=== PATIENT | female | born 1985 ===

== ENCOUNTER 2021-03-27 02:22 | Outpatient (CLI) | payer SELFPAY ==
[2021-03-27 02:49] VITALS: BP 121/77
[2021-03-27] MEDS ORDERED: LACTATED RINGERS 1,000 ML IV ONE (03:21)
--- NOTE | 2021-03-27 07:37 | Ultrasound Report ---
ULTRASOUND BIOPHYSICAL PROFILE INDICATION: BPP. COMPARISON: None available. FINDINGS: breathing movement = 2 Gross body movement = 2 tone = 2 Qualitative amniotic fluid volume = 2 Total biophysical score = 02/26 Amniotic fluid index is 11.9 cm. Presentation is Cephalic. heart rate is 125 beats per minute. IMPRESSION: biophysical profile = 02/26 Signer Name: Carmelo Joy MD Signed: 03/27/2021 7:32 AM Workstation Name: [email or web address]
== END 2021-03-27 08:30 | disposition home or self-care (01) ==
LOC: TRG 02:22 → APU 02:30 → TRG 08:30
PROVIDERS: ATTEND Obstetrics & Gynecology
DX: O62.9 Abnormality of forces of labor, unspecified (principal); O26.893 Other specified pregnancy related conditions, third trimester; R10.9 Unspecified abdominal pain; Z3A.40 40 weeks gestation of pregnancy
CPT/HCPCS: 59025; 76815; 76819; 96360

== ENCOUNTER 2021-03-27 15:54 | Inpatient (IN) | payer OTHER ==
[2021-03-27] MEDS ORDERED: LACTATED RINGERS 1,000 ML ONE (18:34)
[2021-03-27] MEDS ORDERED: ePHEDrine SULFATE 50 MG/1 ML INJ IV PRN ×2 (18:41→18:51)
[2021-03-27] MEDS ORDERED: ONDANSETRON 4 MG/2 ML INJ IV PRN ×2 (18:41→22:09)
[2021-03-27] MEDS ORDERED: NALOXONE 2 MG/2 ML INJ IV PRN (18:41)
[2021-03-27] MEDS ORDERED: diphenhydrAMINE 50 MG/ML VIAL IV PRN (18:41)
[2021-03-27] MEDS ORDERED: LACTATED RINGERS 250 ML IV SOLN IV ONE (18:41)
[2021-03-27] MEDS ORDERED: NalbUPHINE 10 MG/1 ML INJ IV PRN (18:41)
[2021-03-27] MEDS ORDERED: LIDOCAINE (2%) 20 MG/1 ML VIAL 20 ML MDV INFILTRATI ONE ×2 (18:51→21:40)
[2021-03-27] MEDS ORDERED: fentaNYL 100 MCG/2 ML INJ IV PRN (18:51)
[2021-03-27] MEDS ORDERED: ACETAMINOPHEN 325 MG TAB PO PRN ×2 (18:51→22:09)
[2021-03-27] MEDS ORDERED: MINERAL OIL 30 ML ORAL LIQD PO PRN (18:51)
[2021-03-27] MEDS ORDERED: NALOXONE 0.4 MG/1 ML INJ IV PRN (18:51)
[2021-03-27] MEDS ORDERED: miSOPROStol 200 MCG TAB PR PRN (18:51)
[2021-03-27] MEDS ORDERED: TERBUTALINE 1 MG/1 ML INJ SUB-Q PRN (18:51)
[2021-03-27] MEDS ORDERED: CARBOPROST TROMETHAMINE 250 MCG/1 ML INJ IM PRN (18:51)
[2021-03-27] MEDS ORDERED: BUTORPHANOL 2 MG/1 ML INJ IV PRN (18:51)
[2021-03-27] MEDS ORDERED: METHYLERGONOVINE MALEATE 0.2 MG/ML VIAL IM PRN (18:51)
[2021-03-27] MEDS ORDERED: LOPERAMIDE 2 MG CAP PO PRN (18:51)
[2021-03-27] MEDS ORDERED: OXYTOCIN 10 UNIT/1 ML INJ IM PRN (18:51)
[2021-03-27] MEDS ORDERED: OXYTOCIN DRIP 30 UNITS/500 ML BAG IV SCH ×3 (19:00→23:00)
[2021-03-27] MEDS ORDERED: fentaNYL-BUPIV 2 MCG/ML-0.125% 200 MCG/100 ML BAG EPIDURAL SCH (19:00)
[2021-03-27] MEDS ORDERED: LACTATED RINGERS 1,000 ML IV SCH (19:00)
[2021-03-27 19:15] LABS: Hematocrit 37.7 % (30.3-42.9); Hemoglobin 12.7 gm/dl (10.1-14.3); Mean Corpuscular HGB Conc 34 % (30-34); Mean Corpuscular Volume 81 fl (79-97); Platelet Count 182 K/mm3 (140-440); Red Blood Count 4.66 M/mm3 (3.65-5.03); Red Cell Distribution Width 15.9 % (13.2-15.2)
--- NOTE | 2021-03-27 19:42 | History and Physical Report ---
History of Present Illness Date of examination: 03/27/21 Chief complaint: contractions History of present illness: 35 yo A1 at 40w1d ([place] 03/26/21) c/b AMA (cfDNA neg), UTI (E coli s/p tx), el evated 1hr GTT, nl 3hr GTT (PNC at [facility]) presenting with contractions, now 4 cm. +FM. Denies PIH symptoms. PNC reviewed. B+ antibody negative Hemoglobin and hematocrit 12.2 and 36.1 Pap smear negative Rubella immune VDRL nonreactive Urine culture positive for E. coli x 2 Hemoglobin B surface antigen negative HIV negative Gonorrhea chlamydia negative Fragile X, SMA, cyst fibrosis negative CF DNA negative AFP negative 1 hour GTT 161 3-hour GTT 79, 145, 140, 112 Group B strep negative Past History Past Medical History: no pertinent history Past Surgical History: no surgical history Family/Genetic History: none Social history: no significant social history - Obstetrical History Expected Date of Delivery: 03/26/21 Actual Gestation: 40 Week(s) 1 Day(s) : 4 Para: 1 Spontaneous Abortions: 1 Number of Living Children: 2 Medications and Allergies Allergies Allergy/AdvReac Type Severity Reaction Status Date / Time No Known Allergies Allergy Verified 03/27/21 18:31 Home Medications Medication Instructions Recorded Confirmed Last Taken Type One Daily Tablet 1 tab PO DAILY 03/27/21 03/27/21 03/27/21 09:00 History 1 tab Active Meds: Active Medications Acetaminophen (Acetaminophen 325 Mg Tab) 650 mg PO Q4H PRN PRN Reason: Pain, Mild (1-3) Butorphanol Tartrate (Butorphanol 2 Mg/1 Ml Inj) 1 mg IV Q2H PRN PRN Reason: Pain, Moderate(4-6) LABOR PAIN Carboprost Tromethamine (Carboprost Tromethamine 250 Mcg/1 Ml Inj) 250 mcg IM ONCE PRN PRN Reason: Uterine Bleeding Diphenhydramine HCl (Diphenhydramine 50 Mg/Ml Vial) 12.5 mg IV Q2H PRN PRN Reason: Itching Ephedrine Sulfate (Ephedrine Sulfate 50 Mg/1 Ml Inj) 10 mg IV Q2M PRN PRN Reason: Hypotension Fentanyl (Fentanyl 100 Mcg/2 Ml Inj) 100 mcg IV Q2H PRN PRN Reason: Pain,Severe (7-10) LABOR PAIN Last Admin: 03/27/21 19:11 Dose: 100 mcg Documented by: Fentanyl/Bupivacaine/Sodium Chlor (Fentanyl-Bupiv 2 Mcg/Ml-0.125%) 200 mcg in 100 mls @ 12 mls/hr EPIDURAL TITR MYRA; Protocol Oxytocin/Sodium Chloride (Pitocin/Ns 30 Unit/500ml) 30 units in 500 mls @ 2 mls/hr IV TITR MYRA; Protocol Lactated Ringer's (Lactated Ringers) 1,000 mls @ 125 mls/hr IV DIRECT MYRA Last Admin: 03/27/21 19:28 Dose: 125 mls/hr Documented by: Oxytocin/Sodium Chloride (Pitocin/Ns 30 Unit/500ml) 30 units in 500 mls @ 40 mls/hr IV TITR MYRA; Protocol Last Admin: 03/27/21 19:28 Dose: 40 ml/hr, 40 mls/hr Documented by: Loperamide HCl (Loperamide 2 Mg Cap) 2 mg PO ONCE PRN PRN Reason: give with Hemabate Methylergonovine Maleate (Methylergonovine Maleate 0.2 Mg/Ml Vial) 0.2 mg IM ONCE PRN PRN Reason: Uterine Bleeding Mineral Oil (Mineral Oil 30 Ml Oral Liqd) 30 ml PO QHS PRN PRN Reason: Constipation Misoprostol (Misoprostol 200 Mcg Tab) 800 mcg GA ONCE PRN PRN Reason: Uterine Bleeding Nalbuphine HCl (Nalbuphine 10 Mg/1 Ml Inj) 2.5 mg IV Q2H PRN PRN Reason: Itching Naloxone HCl (Naloxone 0.4 Mg/1 Ml Inj) 0.1 mg IV Q2MIN PRN PRN Reason: Res Rate </= 8 or 02 SAT < 92% Ondansetron HCl (Ondansetron 4 Mg/2 Ml Inj) 4 mg IV Q8H PRN PRN Reason: Nausea And Vomiting Oxytocin (Oxytocin 10 Unit/1 Ml Inj) 10 unit IM ONCE PRN PRN Reason: Uterine Bleeding Terbutaline Sulfate (Terbutaline 1 Mg/1 Ml Inj) 0.25 mg SUB-Q ONCE PRN PRN Reason: Hyperstimulation/Hypertonicity Review of Systems All systems: negative (expect HPI) - Vital Signs Vital signs: Vital Signs Pulse Pulse Ox 83 98 03/27/21 16:15 03/27/21 16:15 Temp Pulse Resp BP Pulse Ox 98.3 F 87 18 103/63 97 03/27/21 18:23 03/27/21 19:33 03/27/21 16:19 03/27/21 19:23 03/27/21 19:33 - Physical Exam Abdomen: Positive: normal appearance, soft, normal bowel sounds Genitourinary (Female): Positive: normal external genitalia Uterus: Positive: enlarged Extremities: Positive: normal - Obstetrical FHR: category 1 Uterine Contraction Monitor Mode: External Cervical Dilatation: 8 Uterine Contraction Pattern: Regular Results Result Diagrams: 03/27/21 18:33 Abnormal lab results 03/27/21 Range/Units 18:33 WBC 11.8 H (4.5-11.0) K/mm3 MCH 27 L (28-32) pg RDW 15.9 H (13.2-15.2) % All other labs normal. Assessment and Plan - Patient Problems (1) Active labor at term Current Visit: Yes Status: Acute Plan to address problem: Proceed with expectant management for patient on active labor, Pitocin PRN uterine contractions --Anticipate --Epidural is available GBS negative
[2021-03-27] MEDS ORDERED: diphenhydrAMINE 25 MG CAP PO PRN (22:09)
[2021-03-27] MEDS ORDERED: PROMETHAZINE 25 MG TAB PO PRN (22:09)
[2021-03-27] MEDS ORDERED: PROMETHAZINE 25 MG RECT SUPP PR PRN (22:09)
[2021-03-27] MEDS ORDERED: WITCH HAZEL/ GLYCERIN PAD TP PRN (22:09)
[2021-03-27] MEDS ORDERED: MAGNESIUM HYDROXIDE (MOM) ORAL LIQD UDC PO PRN (22:09)
[2021-03-27] MEDS ORDERED: LANOLIN/ZINC/DIMETHICONE (LANSINOH) 7 GM TP PRN (22:09)
--- NOTE | 2021-03-27 22:14 | Procedure Note ---
OB Delivery Note - Delivery Date of Delivery: 03/27/21 Surgeon: NELL LOPEZ JR Estimated blood loss: 300cc - Vaginal Delivery presentation: vertex Delivery position: OA Intrapartum events: meconium (thick terminal meconium), other(please specify) (body cord x 1) Delivery induction: none Delivery augmentation: rupture of membranes Delivery monitor: external FHT, external uterine Route of delivery: Delivery placenta: spontaneous Delivery cord: other (body cord x 1, loose) Episiotomy: none Delivery laceration: 2nd degree Delivery repair: vicryl Anesthesia: local, intravenous Delivery comments: Status post vaginal delivery of female infant at 2145. Thick meconium noted at time of rupture. Body cord x1 noted at time delivery. Weight 3960 g height 20 inches Apgars 8/9. Second-degree perineal laceration. 2-0 Vicryl. Fundus firm below the umbilicus. Methergine x1 used for uterine atony. EBL 400 cc - A at 1 minute: 8 at 5 minutes: 9 Infant Gender: Female
[2021-03-28] MEDS: IBUPROFEN 600 MG TAB PO SCH ×4 (00:30→17:20)
[2021-03-28] MEDS: oxyCODONE /ACETAMINOPHEN 5-325MG TAB PO PRN (04:55)
--- NOTE | 2021-03-28 10:05 | Progress Note ---
Assessment and Plan A: S/P p: Continue rouitne pp orders Awaiting H&H D/C home tomm if stable Subjective - Subjective Date of service: 03/28/21 Principal diagnosis: s/p Patient reports: appetite normal, voiding normally, pain well controlled, ambulating normally [place]: doing well, bottle feeding Objective - Vital Signs Latest vital signs: Vital Signs Temp Pulse Resp BP BP Pulse Ox Pulse Ox 03/28/21 08:18 98.1 F 63 18 97/58 96 03/28/21 08:00 98 03/28/21 04:37 98.5 F 73 20 106/65 97 03/27/21 23:45 98.1 F 81 16 116/63 98 98 03/27/21 23:13 77 97 03/27/21 23:08 78 96 03/27/21 23:05 77 121/59 03/27/21 23:03 75 97 03/27/21 22:58 79 97 03/27/21 22:53 78 97 03/27/21 22:50 79 123/59 03/27/21 22:48 76 97 03/27/21 22:43 76 96 03/27/21 22:38 80 97 03/27/21 22:35 82 120/55 03/27/21 22:33 87 97 03/27/21 22:28 96 H 97 03/27/21 22:23 86 97 03/27/21 22:20 88 114/56 03/27/21 22:18 91 H 120/59 97 03/27/21 22:13 95 H 96 03/27/21 22:08 91 H 97 03/27/21 22:03 87 97 03/27/21 21:58 94 H 96 03/27/21 21:53 101 H 96 03/27/21 21:52 96 H 107/58 03/27/21 21:49 95 H 108/61 03/27/21 21:48 94 H 95 03/27/21 21:43 101 H 97 03/27/21 21:38 115 H 100 03/27/21 21:33 98 H 98 03/27/21 21:32 94 H 92 03/27/21 21:28 93 H 98 03/27/21 21:23 92 H 98 03/27/21 21:22 96 H 121/72 03/27/21 21:18 100 H 97 03/27/21 21:13 95 H 98 03/27/21 21:08 91 H 98 03/27/21 21:03 86 99 03/27/21 20:58 83 98 03/27/21 20:53 92 H 128/66 97 03/27/21 20:48 94 H 98 03/27/21 20:43 85 98 03/27/21 20:38 84 98 03/27/21 20:33 94 H 98 03/27/21 20:28 85 98 03/27/21 20:23 92 H 111/57 98 03/27/21 20:18 89 98 03/27/21 20:13 84 98 03/27/21 20:11 71 86 03/27/21 20:08 92 H 98 03/27/21 20:03 78 100 03/27/21 19:58 97 H 98 03/27/21 19:53 86 158/77 98 03/27/21 19:48 83 98 03/27/21 19:43 95 H 98 03/27/21 19:38 82 97 03/27/21 19:33 87 97 03/27/21 19:28 94 H 97 03/27/21 19:23 94 H 103/63 98 03/27/21 19:18 83 98 03/27/21 19:15 98.6 F 98 03/27/21 19:13 82 96 03/27/21 19:08 77 98 03/27/21 19:03 88 98 03/27/21 18:58 79 98 03/27/21 18:53 89 97 03/27/21 18:52 76 122/81 03/27/21 18:48 86 98 03/27/21 18:43 91 H 98 03/27/21 18:23 98.3 F 98 03/27/21 16:40 71 99 03/27/21 16:35 79 98 03/27/21 16:30 75 98 03/27/21 16:25 75 98 03/27/21 16:21 80 110/66 03/27/21 16:20 79 99 03/27/21 16:19 98.3 F 18 03/27/21 16:15 83 98 Intake and Output 03/27/21 03/28/21 03/28/21 22:59 06:59 14:59 Intake Total 480 120 Output Total 1300 Balance -820 120 Intake: Oral 120 Intake, Free Water 480 Output: Urine 1300 Void 1300 Other: Total, Intake Amount 120 Total, Output Amount 500 # Voids Void 1 Weight 160 lb Estimated Blood Loss 400 - Exam Breasts: Present: normal Abdomen: Present: normal appearance, soft, normal bowel sounds Vulva: both: normal Uterus: Present: normal, firm, fundal height below umbilicus Extremities: Present: normal Incision: Present: normal, intact - Labs Labs: Abnormal lab results 03/27/21 Range/Units 18:33 WBC 11.8 H (4.5-11.0) K/mm3 MCH 27 L (28-32) pg RDW 15.9 H (13.2-15.2) %
[2021-03-28 10:29] LABS: Hematocrit 32.8 % (30.3-42.9); Hemoglobin 10.8 gm/dl (10.1-14.3)
[2021-03-29] MEDS: IBUPROFEN 600 MG TAB PO SCH ×4 (00:14→18:44)
[2021-03-29] MEDS ORDERED: TETANUS,DIPH,PERTUSS(ACELL) VACCINE 0.5 ML SYRINGE IM ONE (06:00)
--- NOTE | 2021-03-29 09:00 | Discharge Summary ---
Providers - Providers Date of Admission: 03/27/21 22:08 Date of discharge: 03/29/21 Attending physician: NELL LOPEZ JR, MD Primary care physician: NELL LOPEZ JR, MD Hospitalization Reason for admission: active labor, IUP at term Delivery: Episiotomy: none Laceration: 2nd degree Incision: normal, intact complications: none Discharge diagnosis: IUP at term delivered [place] baby: female Hospital course: Pt was admitted to [facility] in active labor and had a w/o pp complications. See H&p, delivery summary and pp notes. Condition at discharge: Stable Disposition: HOME / SELF CARE / HOMELESS Plan - Discharge Medications Prescriptions: Ibuprofen [Motrin 600 MG tab] 600 mg PO Q6HR PRN #30 tablet PRN Reason: Menstrual Cramps - Provider Discharge Summary Activity: routine, no sex for 6 weeks, no heavy lifting 4 weeks, no strenuous exercise Diet: routine Instructions: routine Additional instructions: [] Smoking cessation referral if applicable(refer to patient education folder for contact #) [] Refer to [facility]'s [facility] Booklet Call your doctor immediately for: * Fever > 100.5 * Heavy vaginal bleeding ( >1 pad per hour) * Severe persistent headache * Shortness of breath * Reddened, hot, painful area to leg or breast * Drainage or odor from incision. * Keep incision clean and dry at all times and follow doctor's instructions regarding bathing/showering - Follow up plan Follow up: NELL LOPEZ JR, MD [Primary Care Provider] - 6 Weeks
[2021-03-29] MEDS: oxyCODONE /ACETAMINOPHEN 5-325MG TAB PO PRN (16:15)
[2021-03-29 21:53] VITALS: BP 105/64
== END 2021-03-29 22:10 | disposition home or self-care (01) | DRG 807 ==
LOC: TRG 15:54 → APU 15:56 → LD 18:42 → TRG 21:00 → LD 22:08 → OB 23:45
PROVIDERS: ADMIT Obstetrics & Gynecology; ATTEND Obstetrics & Gynecology
PROC: 10E0XZZ Delivery of Products of Conception, External Approach (ICD-10-PCS; principal; 2021-03-27)
PROC: 0KQM0ZZ Repair Perineum Muscle, Open Approach (ICD-10-PCS; 2021-03-27)
PROC: 3E0234Z Introduction of Serum, Toxoid and Vaccine into Muscle, Percutaneous Approach (ICD-10-PCS; 2021-03-29)
DX: O77.0 Labor and delivery complicated by meconium in amniotic fluid (principal); Z37.0 Single live birth; Z3A.40 40 weeks gestation of pregnancy; Z20.822 Contact with and (suspected) exposure to COVID-19; O70.1 Second degree perineal laceration during delivery
CPT/HCPCS: 36415; 59025; 85014; 85018; 85027; 86592; 86850; 86900; 86901; 90471; 90715; G0378; J2210; J2590; J3010; J7120; U0003

== ENCOUNTER 2022-04-19 14:16 | Inpatient (IN) | payer SELFPAY ==
--- NOTE | 2022-04-19 16:00 | Ultrasound Report ---
US OB limited, US OB BPP wo non-stress INDICATION / CLINICAL INFORMATION: sherita. COMPARISON: None available. FINDINGS: BREATHING MOVEMENT = 2 GROSS BODY MOVEMENT = 2 TONE = 2 QUALITATIVE AMNIOTIC FLUID VOLUME = 2 TOTAL BIOPHYSICAL SCORE = 8/8 AMNIOTIC FLUID INDEX (cm) = 7.2 PRESENTATION: Cephalic. HEART RATE (beats per minute): 163 IMPRESSION: 1. Single live intrauterine . biophysical profile = 8/8 2. SHERITA measures 7.2 cm, which is at the lower limits of normal. Signer Name: Yunier Stallings MD Signed: 04/19/2022 3:56 PM Workstation Name: [email or web address]
[2022-04-19] MEDS ORDERED: LIDOCAINE (2%) 20 MG/1 ML VIAL 20 ML MDV INFILTRATI ONE (16:02)
[2022-04-19] MEDS ORDERED: ACETAMINOPHEN 325 MG TAB PO PRN (16:02)
[2022-04-19] MEDS ORDERED: OXYTOCIN 10 UNIT/1 ML INJ IM PRN (16:02)
[2022-04-19] MEDS ORDERED: CARBOPROST TROMETHAMINE 250 MCG/1 ML INJ IM PRN (16:02)
[2022-04-19] MEDS ORDERED: miSOPROStol 200 MCG TAB PR PRN (16:02)
[2022-04-19] MEDS ORDERED: LOPERAMIDE 2 MG CAP PO PRN (16:02)
[2022-04-19] MEDS ORDERED: METHYLERGONOVINE MALEATE 0.2 MG/ML VIAL IM PRN (16:02)
[2022-04-19] MEDS ORDERED: NALOXONE 0.4 MG/1 ML INJ IV PRN (16:02)
[2022-04-19] MEDS ORDERED: ePHEDrine SULFATE 50 MG/1 ML INJ IV PRN (16:02)
[2022-04-19] MEDS ORDERED: ONDANSETRON 4 MG/2 ML INJ IV PRN (16:02)
[2022-04-19] MEDS ORDERED: MINERAL OIL 30 ML ORAL LIQD PO PRN (16:02)
[2022-04-19] MEDS ORDERED: NalbUPHINE 10 MG/1 ML INJ IV PRN (16:02)
[2022-04-19] MEDS ORDERED: BUTORPHANOL 2 MG/1 ML INJ IV PRN (16:02)
[2022-04-19] MEDS ORDERED: TERBUTALINE 1 MG/1 ML INJ SUB-Q PRN (16:02)
--- NOTE | 2022-04-19 16:11 | History and Physical Report ---
History of Present Illness Date of examination: 04/19/22 Date of admission: 04/19/22 14:16 Chief complaint: Presents for a scheduled postdates induction History of present illness: care at [facility]; course complicated by recurrent urinary tract infection (taking daily ABX suppression); also had a abnormal 1 hour GTT; followed by a normal 3 hour GTT. 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 (D&C: 2003) Family/Genetic History: none Social history: no significant social history - Obstetrical History Expected Date of Delivery: 04/13/22 Actual Gestation: 40 Week(s) 6 Day(s) : 5 Para: 3 Hx # Term Pregnancies: 3 Spontaneous Abortions: 1 Number of Living Children: 3 #1 Gender: Male year: 2,[birth year] Birthweight: 3.175 kg Method of Delivery: Vaginal Gestational age at delivery: 40 #2 Infant Gender: Female year: 2,009 Birthweight: 3.629 kg Method of Delivery: Vaginal Gestational age at delivery: 40 #3 Infant Gender: Female year: 2,021 Birthweight: 3.629 kg Method of Delivery: Vaginal Gestational age at delivery: 40 Medications and Allergies Allergies Allergy/AdvReac Type Severity Reaction Status Date / Time No Known Allergies Allergy Verified 03/27/21 18:31 Home Medications Medication Instructions Recorded Confirmed Last Taken Type One Daily Tablet 1 tab PO DAILY 03/27/21 03/27/21 03/27/21 09:00 History 1 tab Ibuprofen [Motrin 600 MG tab] 600 mg PO Q6HR PRN #30 tablet 03/29/21 Unknown Rx - Vital Signs Vital signs: Vital Signs Pulse BP 82 112/62 04/19/22 14:50 04/19/22 14:50 Temp Pulse Resp BP Pulse Ox 98.3 F 82 16 112/62 04/19/22 15:00 04/19/22 15:00 04/19/22 15:00 04/19/22 15:00 - Physical Exam Breasts: Positive: normal Cardiovascular: Regular rate Lungs: Positive: Clear to auscultation, Normal air movement Abdomen: Positive: normal appearance, soft, normal bowel sounds Genitourinary (Female): Positive: normal external genitalia, normal perenium Vagina: Positive: normal moisture Uterus: Positive: enlarged Anus/Rectum: Positive: normal perianal skin Extremities: Positive: normal - Obstetrical FHR: category 1 Uterine Contraction Monitor Mode: External Cervical Dilatation: 4 (bulging bag) Cervical Effacement Percentage: 60 station: -3 Uterine Contraction Pattern: Irregular Uterine Tone Measurement Phase: Resting Uterine Contraction Intensity: Mild Results All other labs normal. Assessment and Plan A: IUP @ 40 6/7 Weeks Category I Tracing AMA Low SHERITA (7.2) GBS Negative P: Admit to L&D Per Routine Orders Pitocin Induction
[2022-04-19] MEDS ORDERED: LACTATED RINGERS 1,000 ML IV SCH (16:15)
[2022-04-19] MEDS ORDERED: OXYTOCIN DRIP 30 UNITS/500 ML BAG IV SCH ×2 (17:00)
[2022-04-19 20:07] LABS: Hematocrit 35.9 % (30.3-42.9); Mean Corpuscular HGB Conc 33 % (30-34); Mean Corpuscular Volume 82 fl (79-97); Platelet Count 191 K/mm3 (140-440); Red Blood Count 4.37 M/mm3 (3.65-5.03); Red Cell Distribution Width 15.6 % (13.2-15.2)
[2022-04-20] MEDS ORDERED: miSOPROStol 25 MCG TAB PO SCH (02:00)
--- NOTE | 2022-04-20 04:11 | Ultrasound Report ---
ULTRASOUND OBSTETRIC INDICATION / CLINICAL INFORMATION: Post due date.. - Clinical Gestational Age (GA) in weeks, days: 41 weeks 0 days TECHNIQUE: Transabdominal. COMPARISON: 04/19/2022 FINDINGS: Single intrauterine . Biparietal Diameter = 8.75 cm = 35, 2 weeks, days Head Circumference = 34.73 cm = 40, 10 weeks, days Abdominal Circumference = 36.82 cm = 40, 5 weeks, days Femur Length = 7.42 cm = 38, 0 weeks, days Average Ultrasound Age (AUA) = 38, 4 weeks, days Heart Rate: 135 beats per minute. Estimated Weight in grams (if calculated): 3768 Estimated Weight Growth Percentile (if calculated): Calculated Position: cephalic. Amniotic Fluid Volume: Appears qualitatively low. Amniotic Fluid Index (SHERITA) in cm (if calculated): Not calculated. IMPRESSION: 1. Single, living intrauterine with estimated sonographic age of 38 weeks, 4 days. 2. Amniotic fluid volume appears qualitatively low, but the SHERITA was not calculated. Signer Name: Anil Teran MD Signed: 04/20/2022 4:06 AM Workstation Name: [email or web address]
[2022-04-20] MEDS ORDERED: MINERAL OIL 30 ML ORAL LIQD ONE (09:41)
--- NOTE | 2022-04-20 09:49 | Progress Note ---
Assessment and Plan A: IUP@ 41 wks Postdates AMA P: Continue monitoring AROM cl fluid Will start Pitocin if uc don't regulate Anticipate Subjective - Subjective Date of service: 04/20/22 Principal diagnosis: IUP@ 41 wks Patient reports: movement normal, contractions Objective - Vital Signs Vital Signs: Vital Signs - 12hr 04/20/22 04/20/22 08:29 08:32 Pulse Rate 80 Blood Pressure 113/76 O2 Sat by Pulse 99 Oximetry [ Bilateral] - Exam Breasts: normal Abdomen: Present: normal appearance, soft, normal bowel sounds Vulva: both: normal Uterus: Present: normal FHR: auscultation normal, category 1 Uterine Contraction Monitor Mode: External Cervical Dilatation: 5 Cervical Effacement Percentage: 60 station: -2 Uterine Contraction Pattern: Irregular Uterine Tone Measurement Phase: Resting Uterine Contraction Intensity: Moderate Extremities: normal - Labs Labs: Abnormal Labs 04/19/22 19:26 MCH 27 L RDW 15.6 H Laboratory Results - last 24 hr 04/19/22 04/19/22 19:26 19:26 WBC 7.1 RBC 4.37 Hgb 12.0 Hct 35.9 MCV 82 MCH 27 L MCHC 33 RDW 15.6 H Plt Count 191 Blood Type B POSITIVE Antibody Screen Negative
--- NOTE | 2022-04-20 10:15 | Anesthesia Consultation ---
Anesthesia Consult and Med Hx Date of service: 04/20/22 - Airway Anesthetic Teeth Evaluation: Good ROM Head & Neck: Adequate Mental/Hyoid Distance: Adequate Mallampati Class: Class II Intubation Access Assessment: Probably Good - Pulmonary Exam CTA: Yes - Cardiac Exam Cardiac Exam: RRR - Pre-Operative Health Status ASA Pre-Surgery Classification: ASA2 Proposed Anesthetic Plan: Epidural - Pulmonary Hx Smoking: No Hx Asthma: No Hx Respiratory Symptoms: No SOB: No COPD: No Home Oxygen Therapy: No Hx Pneumonia: No Hx Sleep Apnea: No - Cardiovascular System Hx Hypertension: No Hx Coronary Artery Disease: No Hx Heart Attack/AMI: No Hx Angina: No Hx Percutaneous Transluminal Coronary Angioplasty (PTCA): No Hx Cardia Arrhythmia: No Hx Pacemaker: No Hx Internal Defibrillator: No Hx Valvular Heart Disease: No Hx Heart Murmur: No Hx Peripheral Vascular Disease: No - Central Nervous System Hx Neuromuscular Disorder: No Hx Seizures: No CVA: No Hx Back Pain: No Hx Psychiatric Problems: No - Gastrointestinal Hx Ulcer: No Hx Gastroesophageal Reflux Disease: No - Endocrine Hx Renal Disease: No Hx End Stage Renal Disease: No Hx Cirrhosis: No Hx Liver Disease: No Hx Insulin Dependent Diabetes: No Hx Non-Insulin Dependent Diabetes: No Hx Thyroid Disease: No Hx Hypothyroidism: No Hx Hyperthyroidism: No - Hematic Hx Anemia: No Hx Sickle Cell Disease: No - Other Systems Hx Alcohol Use: No Hx Substance Use: No Hx Cancer: No Hx Obesity: No
--- NOTE | 2022-04-20 10:15 | Anesthesia Day of Surgery ---
Anesthesia Day of Surgery - Day of Surgery Patient Examined: Yes Patient H&P Reviewed: Yes Patient is NPO: Yes Beta Blockers: No Cardiac Clearance: No Pulmonary Clearance: No Benjamín's Test: N/A
--- NOTE | 2022-04-20 10:16 | Progress Note ---
Labor Epidural - Labor Epidural Start Time: 09:56 Stop Time: 10:02 Performed by:: JERMAIN FLYNN Procedure: Epidural Requested for Labor Pain. H&P and PT Chart reviewed and consent obtained. Time out performed and the procedure was explained, all questions answered. Patient was placed in a sitting position with monitors applied. The PTs back was prepped and draped in usual sterile fashion. The Skin was localized with 3 mL of 1% lidocaine at L3-L4. A 17-gauge Touhy epidural needle was advanced to PUJA with saline at 7 cm and no blood/CSF was noted via epidural needle. Epidural catheter was advanced to 12 cm. There was negative aspiration for blood and CSF in the catheter and negative response to a test dose of 3 ml 1.5% lidocaine w/ Epi and a sterile dressing was applied Patient tolerated the procedure well and there were no immediate complications noted.
[2022-04-20] MEDS ORDERED: ePHEDrine SULFATE 50 MG/1 ML INJ IV PRN (10:30)
[2022-04-20] MEDS ORDERED: fentaNYL-BUPIV 2 MCG/ML-0.125% 200 MCG/100 ML BAG EPIDURAL SCH (11:00)
[2022-04-20] MEDS ORDERED: NALOXONE 0.4 MG/1 ML INJ IV PRN (11:00)
--- NOTE | 2022-04-20 12:36 | Procedure Note ---
OB Delivery Note - Delivery Date of Delivery: 04/20/22 Surgeon: LUISA VIZCARRA Estimated blood loss: 200cc - Vaginal Delivery presentation: vertex Delivery position: OA Delivery induction: oxytocin Delivery augmentation: rupture of membranes Delivery monitor: external FHT, external uterine Route of delivery: Delivery placenta: spontaneous Delivery cord: 3 umbilical vessels Episiotomy: none Delivery laceration: 1st degree Delivery repair: vicryl Anesthesia: epidural Delivery comments: of a viable male infant in OA position over first degree perineal lac. Infant to mom's chest for skin to skin bonding. Delayed cord clamping x 1 min while nurse dried and stimulated infant. Cord was clamped x 2 and cut. Infant was taken by VICKY nurse for an initial asses 9/9. Spontaneous delivery of an intact placenta with 3CV. FF@ U3 with fundal massage and IV Pitocin. Perineum was repaired with a 3-[address]-1. QBL 200cc. Mom and baby were left in stable condition with nurses. - A at 1 minute: 9 at 5 minutes: 9 Gender: Male (FW 3975 Gms)
[2022-04-20] MEDS ORDERED: PROMETHAZINE 25 MG TAB PO PRN (12:45)
[2022-04-20] MEDS ORDERED: oxyCODONE /ACETAMINOPHEN 5-325MG TAB PO PRN (12:45)
[2022-04-20] MEDS ORDERED: PROMETHAZINE 25 MG RECT SUPP PR PRN (12:45)
[2022-04-20] MEDS ORDERED: ONDANSETRON 4 MG/2 ML INJ IV PRN (12:45)
[2022-04-20] MEDS ORDERED: diphenhydrAMINE 25 MG CAP PO PRN (12:45)
[2022-04-20] MEDS ORDERED: MAGNESIUM HYDROXIDE (MOM) ORAL LIQD UDC PO PRN (12:45)
[2022-04-20] MEDS ORDERED: WITCH HAZEL/ GLYCERIN PAD TP PRN (12:45)
[2022-04-20] MEDS ORDERED: LANOLIN/ZINC/DIMETHICONE (LANSINOH) 7 GM TP PRN (12:45)
[2022-04-20] MEDS: IBUPROFEN 800 MG TAB PO SCH ×2 (16:18→21:57)
[2022-04-20 17:37] VITALS: BP 92/53
[2022-04-21] MEDS ORDERED: PRENATAL VIT27-FE FUMARATE-FOLIC ACID VIT TAB PO SCH (10:00)
== END 2022-04-20 23:55 | disposition home or self-care (01) | DRG 807 ==
LOC: UNDOADMIN 14:16 → LD 14:16 → OB 04-20 14:20
PROVIDERS: ADMIT Obstetrics & Gynecology Gynecology; ATTEND Obstetrics & Gynecology Gynecology
PROC: 0HQ9XZZ Repair Perineum Skin, External Approach (ICD-10-PCS; principal; 2022-04-20)
PROC: 10E0XZZ Delivery of Products of Conception, External Approach (ICD-10-PCS; 2022-04-20)
PROC: 3E0S3BZ Introduction of Anesthetic Agent into Epidural Space, Percutaneous Approach (ICD-10-PCS; 2022-04-20)
PROC: 00HU33Z Insertion of Infusion Device into Spinal Canal, Percutaneous Approach (ICD-10-PCS; 2022-04-20)
PROC: 10907ZC Drainage of Amniotic Fluid, Therapeutic from Products of Conception, Via Natural or Artificial Opening (ICD-10-PCS; 2022-04-20)
DX: O70.0 First degree perineal laceration during delivery (principal); Z37.0 Single live birth; O48.0 Post-term pregnancy; Z3A.41 41 weeks gestation of pregnancy; Z20.822 Contact with and (suspected) exposure to COVID-19
CPT/HCPCS: 36415; 76815; 76816; 76819; 85014; 85018; 85027; 86850; 86900; 86901; 96360; 96361; G0378; J3490; J7120; U0003